=== PATIENT | male | born 1995 | race Two or more races ===

== ENCOUNTER 2022-10-24 18:36 | Emergency (ER) | payer OTHER ==
[~2022-10-24] VITALS: Ht 167.6 cm; Wt 68.5 kg
[~2022-10-24 18:36] MED LIST: DICLOFENAC POTA50 MG PO
== END 2022-10-24 20:38 | disposition home or self-care (01) ==
LOC: ER 18:36
DX: H93.11 Tinnitus, right ear (principal)

== ENCOUNTER 2022-12-17 18:15 | Emergency (ER) | payer OTHER ==
[~2022-12-17] VITALS: Ht 167.6 cm; Wt 69.4 kg
[2022-12-17] MEDS ORDERED: PEPCID AC20 MG PO (22:15)
[2022-12-17] MEDS ORDERED: ONDANSETRON ODT8 MG PO (22:15)
== END 2022-12-17 22:39 | disposition home or self-care (01) ==
LOC: ER 18:15
DX: K52.9 Noninfective gastroenteritis and colitis, unspecified (principal)